=== PATIENT | male | born 1990 | race Caucasian/White ===

== ENCOUNTER 2018-06-27 10:31 | Emergency (ER) | payer OTHER, SELFPAY ==
[2018-06-27] MEDS ORDERED: METHYLPREDNISOLONE 125 MG INJ ONE (11:00)
[2018-06-27] MEDS ORDERED: IPRATROPIUM BROM 0.5MG/2.5ML ONE (11:00)
[2018-06-27] MEDS ORDERED: ALBUTEROL 2.5 MG/3 ML NEB SOL ONE (11:00)
[2018-06-27 11:14] LABS: Absolute Lymphocytes (CBC) 1.1 K/uL (0.7-4.9); Absolute Monocytes 0.9 K/uL (0.1-1.3); Absolute Neutrophil 5.3 K/uL (1.8-8.0); Basophils % 0.5 % (0-1.3); Eosinophils % 0.1 % (0-4.4); Hematocrit 52.9 % (39.6-49.0); Lymphocytes % 15.2 % (15.3-44.8); MPV 8.6 fL (7.6-11.3); Monocytes % 12.5 % (3.3-12.3); RBC Red Blood Cell Count 5.74 M/uL (4.33-5.43)
[2018-06-27 11:16] LABS: Protime INR 1.23
[2018-06-27 11:29] LABS: ALT/SGPT 50 U/L (12-78); AST/SGOT 30 U/L (15-37); Albumin 4.1 g/dL (3.4-5.0); Alkaline Phosphatase 95 U/L (45-117); BUN Blood Urea Nitrogen 14 mg/dL (7-18); Bicarbonate 20 mmol/L (21-32); Bilirubin Direct 0.1 mg/dL (0-0.2); Bilirubin Total 0.4 mg/dL (0.2-1.0); Glucose Level 149 mg/dL (74-106); Magnesium 1.9 mg/dL (1.8-2.4); NT PRO-BNP 121 pg/mL (<125); Potassium 3.4 mmol/L (3.5-5.1); Protein, Total 8.6 g/dL (6.4-8.2); Sodium Level 136 mmol/L (136-145); Troponin (Emerg Dept Use Only) < 0.02 ng/mL (0.0-0.045)
--- NOTE | 2018-06-27 11:54 | RAD REPORT ---
EXAM DESCRIPTION: Jd Single View06/27/2018 11:15 am CLINICAL HISTORY: sob COMPARISON: none FINDINGS: The lungs appear clear of acute infiltrate. The heart is normal size IMPRESSION: No acute abnormalities displayed
[2018-06-27] MEDS ORDERED: NA CHLORIDE 0.9% 1,000 ML ONE ×2 (11:58→13:09)
[2018-06-27 12:00] LABS: Urine Blood 1+ (NEG); Urine Glucose NEGATIVE (NEG); Urine Protein 2+ (NEG); Urine pH 5.5 (5.0-7.0)
[2018-06-27] MEDS ORDERED: LEVALBUTEROL 1.25 MG/3 ML NEB ONE (13:14)
--- NOTE | 2018-06-27 14:40 | ER ---
Nurse's Notes [facility] Name: Felix Mendoza Age: 27 yrs Sex: Male : 1990 Arrival Date: 06/27/2018 Time: 10:33 Bed 14 Private MD: Diagnosis: Influenza due to identified novel influenza A virus;Asthma Presentation: 06/27 10:33 Presenting complaint: Patient states: SOB today. Pt reports taking his mom's Albuterol aa5 neb POTLINE MONITOR without relief. Pt also reports cough, fever, nausea, vomiting, and diarrhea that began 3 days ago. 10:33 Transition of care: patient was not received from another setting of care. Onset of aa5 symptoms was June 27, 2018. Care prior to arrival: None. 10:33 Acuity: PABLO 2 aa5 10:33 Method Of Arrival: Ambulatory aa5 10:45 Risk Assessment: Do you want to hurt yourself or someone else? Patient reports no bp desire to harm self or others. Initial Sepsis Screen: Does the patient meet any 2 criteria? HR > 90 bpm. No. Patient's initial sepsis screen is negative. Does the patient have a suspected source of infection? Yes: Productive cough/pneumonia. Triage Assessment: 10:35 Respiratory: Onset: The symptoms/episode began/occurred 3 DAYS, the patient has mild bp shortness of breath. Historical: - Allergies: 10:33 No Known Allergies; aa5 - PMHx: 10:33 None; aa5 - PSHx: 10:33 None; aa5 - Immunization history:: Adult Immunizations up to date. - Ebola Screening: : No symptoms or risks identified at this time. - Social history:: Smoking status: Patient uses tobacco products, unknown amount. Screenin:00 Abuse screen: Denies threats or abuse. Denies injuries from another. Nutritional bp screening: No deficits noted. Tuberculosis screening: No symptoms or risk factors identified. Fall Risk None identified. Assessment: 10:35 General: Appears in no apparent distress. uncomfortable, ill, Behavior is calm, bp cooperative, appropriate for age. Pain: Denies pain. Neuro: Level of Consciousness is awake, alert, obeys commands, Oriented to person, place, time, situation, Appropriate for age. Cardiovascular: Rhythm is sinus tachycardia. Respiratory: Airway is patent Respiratory effort is even, labored, Respiratory pattern is regular, tachypnea Breath sounds with wheezes bilaterally. GI: Reports nausea, vomiting. : No signs and/or symptoms were reported regarding the genitourinary system. EENT: No deficits noted. Derm: No deficits noted. Musculoskeletal: Circulation, motion, and sensation intact. Range of motion: intact in all extremities. 12:00 Reassessment: MARKED EXERTIONAL DYSPNEA NOTED. IVF INFUSING. bp 14:00 Reassessment: ALL CURRENT ORDERS COMPLETED, DISPO PENDING. [id number] NOTED ON ROOM AIR. bp 15:44 Reassessment: PT D/C HOME AMBULATORY WITH FAMILY, DX WITH INFLUENZA A. bp Vital Signs: 10:34 BP 129 / 84; Pulse 150; Resp 30 S; Temp 97.8(TE); Pulse Ox 92% on R/A; aa5 11:00 BP 145 / 100; Pulse 133; Resp 28; Pulse Ox 100% ; bp 12:30 BP 140 / 78; Pulse 120; Resp 24; Pulse Ox 93% on R/A; bp 14:00 BP 115 / 63; Pulse 115; Resp 24; Pulse Ox 91% ; bp ED Course: 10:33 Patient arrived in ED. mr 10:33 Arm band placed on Patient placed in an exam room, on a stretcher. aa5 10:38 Jay Egan NP is PHCP. pm1 10:38 Marjan Scott MD is Attending Physician. pm1 10:41 Triage completed. aa5 10:45 Benja Arredondo, KYLER is Primary Nurse. bp 10:45 Inserted saline lock: 20 gauge in right antecubital area, using aseptic technique. bp Blood collected. 10:55 EKG done, by ED staff, reviewed by Jay Egan NP. jb1 11:00 Patient has correct armband on for positive identification. Bed in low position. Call bp light in reach. Side rails up X2. 11:14 X-ray completed. Portable x-ray completed in exam room. Patient tolerated procedure kp1 well. 11:16 XRAY Chest (1 view) In Process Unspecified. EDMS 12:01 Urine collected: clean catch specimen, cloudy, mark colored. jb1 15:42 No provider procedures requiring assistance completed. IV discontinued, intact, bp bleeding controlled, No redness/swelling at site. Pressure dressing applied. Administered Medications: 11:00 Drug: Albuterol - atroVENT (3:1) (2.5 mg - 0.5 mg) 3 ml Route: Nebulizer; bp 13:09 Follow up: Response: No adverse reaction bp 11:00 Drug: SOLU-Medrol 125 mg Route: IVP; Site: right antecubital; bp 12:00 Follow up: Response: No adverse reaction bp 11:45 Drug: NS 0.9% 1000 ml Route: IV; Rate: 1000 ml; Site: right antecubital; bp 13:00 Follow up: IV Status: Completed infusion; IV Intake: 1000ml bp 13:00 Drug: NS 0.9% 1000 ml Route: IV; Rate: 1000 ml; Site: right antecubital; bp 14:00 Follow up: IV Status: Completed infusion; IV Intake: 1000ml bp 13:05 Drug: Xopenex 1.25 mg Route: Inhalation; bp 14:50 Drug: Rocephin 1 grams Route: IV; Rate: calculated rate; Site: right antecubital; bp 15:41 Follow up: IV Status: Completed infusion; IV Intake: 100ml bp Intake: 13:00 IV: 1000ml; Total: 1000ml. bp 14:00 IV: 1000ml; Total: 2000ml. bp 15:41 IV: 100ml; Total: 2100ml. bp Outcome: 14:39 Discharge ordered by MD. pm1 15:43 Discharged to home ambulatory, with family. bp 15:43 Condition: stable 15:43 Discharge instructions given to patient, Instructed on discharge instructions, follow up and referral plans. medication usage, Demonstrated understanding of instructions, follow-up care, medications, Prescriptions given X 4. 15:45 Patient left the ED. bp Signatures: Dispatcher [employer] EDMS [place] jb1 Jason Fabiana IrizarryCorine, RN RN aa5 Jay Egan, ELÍAS DRY PAN OPERATOR pm1 Natalia Blue kp1 Benja Arredondo RN RN bp
--- NOTE | 2018-06-27 14:40 | EDPHYS ---
Physician Documentation [facility] Name: Felix Mendoza Age: 27 yrs Sex: Male : 1990 Arrival Date: 06/27/2018 Time: 10:33 Bed 14 Private MD: ED Physician Marjan Scott HPI: 06/27 11:30 This 27 yrs old Male presents to ER via Ambulatory with complaints of pm1 Breathing Difficulty, Vomiting/Diarrhea. 11:30 The patient has shortness of breath at rest. Onset: The symptoms/episode began/occurred pm1 3 day(s) ago. Duration: The symptoms are continuous. The patient's shortness of breath is aggravated by nothing, is alleviated by nothing. Associated signs and symptoms: Pertinent positives: non-productive cough, fever, vomiting, Diarrhea, Pertinent negatives: chest pain, diaphoresis, dizziness. Severity of symptoms: in the emergency department the symptoms are worse. The patient has not experienced similar symptoms in the past. The patient has not recently seen a physician. Historical: - Allergies: 10:33 No Known Allergies; aa5 - PMHx: 10:33 None; aa5 - PSHx: 10:33 None; aa5 - Immunization history:: Adult Immunizations up to date. - Ebola Screening: : No symptoms or risks identified at this time. - Social history:: Smoking status: Patient uses tobacco products, unknown amount. ROS: 11:30 Eyes: Negative for injury, pain, redness, and discharge, ENT: Negative for injury, pm1 pain, and discharge, Neck: Negative for injury, pain, and swelling, Cardiovascular: Negative for chest pain, palpitations, and edema. 11:30 Abdomen/GI: Negative for abdominal pain, nausea, vomiting, diarrhea, and constipation, Back: Negative for injury and pain, : Negative for injury, bleeding, discharge, and swelling, MS/Extremity: Negative for injury and deformity, Skin: Negative for injury, rash, and discoloration, Neuro: Negative for headache, weakness, numbness, tingling, and seizure. 11:30 Constitutional: Positive for body aches, chills, fever, Negative for poor PO intake. 11:30 Respiratory: Positive for cough, shortness of breath, wheezing. Exam: 11:30 Constitutional: This is a well developed, well nourished patient who is awake, alert, pm1 and in no acute distress. Head/Face: Normocephalic, atraumatic. Eyes: Pupils equal round and reactive to light, extra-ocular motions intact. Lids and lashes normal. Conjunctiva and sclera are non-icteric and not injected. Cornea within normal limits. Periorbital areas with no swelling, redness, or edema. ENT: Nares patent. No nasal discharge, no septal abnormalities noted. Tympanic membranes are normal and external auditory canals are clear. Oropharynx with no redness, swelling, or masses, exudates, or evidence of obstruction, uvula midline. Mucous membranes moist. Neck: Trachea midline, no thyromegaly or masses palpated, and no cervical lymphadenopathy. Supple, full range of motion without nuchal rigidity, or vertebral point tenderness. No Meningismus. Chest/axilla: Normal chest wall appearance and motion. Nontender with no deformity. No lesions are appreciated. Cardiovascular: Regular rate and rhythm with a normal S1 and S2. No gallops, murmurs, or rubs. Normal PMI, no JVD. No pulse deficits. 11:30 Abdomen/GI: Soft, non-tender, with normal bowel sounds. No distension or tympany. No guarding or rebound. No evidence of tenderness throughout. Back: No spinal tenderness. No costovertebral tenderness. Full range of motion. Skin: Warm, dry with normal turgor. Normal color with no rashes, no lesions, and no evidence of cellulitis. MS/ Extremity: Pulses equal, no cyanosis. Neurovascular intact. Full, normal range of motion. 11:30 Respiratory: the patient does not display signs of respiratory distress, Respirations: normal, Breath sounds: wheezing: expiratory is heard in the left posterior upper lobe and left posterior lower lobe. 11:30 Neuro: Orientation: is normal, Motor: moves all fours. Vital Signs: 10:34 BP 129 / 84; Pulse 150; Resp 30 S; Temp 97.8(TE); Pulse Ox 92% on R/A; aa5 11:00 BP 145 / 100; Pulse 133; Resp 28; Pulse Ox 100% ; bp 12:30 BP 140 / 78; Pulse 120; Resp 24; Pulse Ox 93% on R/A; bp 14:00 BP 115 / 63; Pulse 115; Resp 24; Pulse Ox 91% ; bp MDM: 10:38 Patient medically screened. pm1 14:10 Data reviewed: vital signs. pm1 14:38 Counseling: I had a detailed discussion with the patient and/or guardian regarding: the pm1 historical points, exam findings, and any diagnostic results supporting the discharge/admit diagnosis, lab results, radiology results. 14:38 ED course: Offered patient admission to the hospital. Patient would like to go home. pm1 Discussed return precautions with the patient. Will discharge the patient home with antibiotics, breathing treatment and steroids.. 06/27 10:45 Order name: Basic Metabolic Panel; Complete Time: 11:34 pm06/27 10:45 Order name: CBC with Diff; Complete Time: 11:34 pm06/27 10:45 Order name: LFT's; Complete Time: 11:34 pm06/27 10:45 Order name: Magnesium; Complete Time: 11:34 pm06/27 10:45 Order name: NT PRO-BNP; Complete Time: 11:34 pm1 06/27 10:45 Order name: PT-INR; Complete Time: 11:34 pm06/27 10:45 Order name: Troponin (emerg Dept Use Only); Complete Time: 11:34 pm1 06/27 10:45 Order name: XRAY Chest (1 view); Complete Time: 11:55 pm06/27 10:45 Order name: Flu; Complete Time: 11:34 pm06/27 11:49 Order name: Urine Dipstick--Ancillary (enter results); Complete Time: 12:02 06/27 10:45 Order name: EKG; Complete Time: 10:46 pm06/27 10:45 Order name: Cardiac monitoring; Complete Time: 10:55 pm06/27 10:45 Order name: EKG - Nurse/Tech; Complete Time: 10:55 pm06/27 10:45 Order name: IV Saline Lock; Complete Time: 10:55 pm06/27 10:45 Order name: Labs collected and sent; Complete Time: 10:55 pm06/27 10:45 Order name: O2 Per Protocol; Complete Time: 10:55 pm06/27 10:45 Order name: O2 Sat Monitoring; Complete Time: 10:56 pm06/27 11:43 Order name: Urine Dipstick-Ancillary (obtain specimen); Complete Time: 12:01 pm1 Administered Medications: 11:00 Drug: Albuterol - atroVENT (3:1) (2.5 mg - 0.5 mg) 3 ml Route: Nebulizer; bp 13:09 Follow up: Response: No adverse reaction bp 11:00 Drug: SOLU-Medrol 125 mg Route: IVP; Site: right antecubital; bp 12:00 Follow up: Response: No adverse reaction bp 11:45 Drug: NS 0.9% 1000 ml Route: IV; Rate: 1000 ml; Site: right antecubital; bp 13:00 Follow up: IV Status: Completed infusion; IV Intake: 1000ml bp 13:00 Drug: NS 0.9% 1000 ml Route: IV; Rate: 1000 ml; Site: right antecubital; bp 14:00 Follow up: IV Status: Completed infusion; IV Intake: 1000ml bp 13:05 Drug: Xopenex 1.25 mg Route: Inhalation; bp 14:50 Drug: Rocephin 1 grams Route: IV; Rate: calculated rate; Site: right antecubital; bp 15:41 Follow up: IV Status: Completed infusion; IV Intake: 100ml bp Disposition: 15:48 Co-signature as Attending Physician, Marjan Scott MD. ma2 Disposition: 06/27/18 14:39 Discharged to Home. Impression: Influenza due to identified novel influenza A virus, Asthma. - Condition is Stable. - Discharge Instructions: Asthma, Adult, Influenza, Adult, Asthma Attack Prevention, Adult. - Prescriptions for Prednisone 20 mg Oral Tablet - take 3 tablet by ORAL route once daily for 5 days; 15 tablet. Albuterol Sulfate 2.5 mg /3 mL (0.083 %) Inhalation Solution for Nebulization - inhale 1 unit by NEBULIZATION route every 8 hours As needed; 1 box. Zithromax Z- David 250 mg Oral Tablet - take 1 tablet by ORAL route as directed for 5 days Day 1 - take two (2) tablets one time. Day 2, 3, 4 , 5 take one (1) tablet once daily.; 6 tablet. Tamiflu 75 mg Oral Capsule - take 1 tablet by ORAL route every 12 hours for 5 days; 10 tablet. - Medication Reconciliation Form, Thank You Letter, Antibiotic Education, Prescription Opioid Use form. - Follow up: Emergency Department; When: As needed; Reason: Worsening of condition. Follow up: Private Physician; When: 2 - 3 days; Reason: Recheck today's complaints, Continuance of care, Re-evaluation by your physician. - Problem is new. - Symptoms have improved. Signatures: Dispatcher [employer] EDCorine Barron, RN RN aa5 Jay Egan, SALES PROCESS MANAGER SALES PROCESS MANAGER pm1 Benja Arredondo RN RN bp Marjan Scott MD MD ma2 Corrections: (The following items were deleted from the chart) 14:40 14:39 06/27/2018 14:39 Discharged to Home. Impression: Influenza due to identified pm1 novel influenza A virus. Condition is Stable. Forms are Medication Reconciliation Form, Thank You Letter, Antibiotic Education, Prescription Opioid Use. Follow up: Emergency Department; When: As needed; Reason: Worsening of condition. Follow up: Private Physician; When: 2 - 3 days; Reason: Recheck today's complaints, Continuance of care, Re-evaluation by your physician. Problem is new. Symptoms have improved. pm1 15:45 14:40 06/27/2018 14:39 Discharged to Home. Impression: Influenza due to identified bp novel influenza A virus; Asthma. Condition is Stable. Forms are Medication Reconciliation Form, Thank You Letter, Antibiotic Education, Prescription Opioid Use. Follow up: Emergency Department; When: As needed; Reason: Worsening of condition. Follow up: Private Physician; When: 2 - 3 days; Reason: Recheck today's complaints, Continuance of care, Re-evaluation by your physician. Problem is new. Symptoms have improved. pm1
[2018-06-27] MEDS ORDERED: NA CHLORIDE 0.9% 100 ML IV ONE (15:03)
[2018-06-27] MEDS ORDERED: CEFTRIAXONE 1000 MG/VIAL ONE (15:03)
--- NOTE | 2018-06-29 09:17 | EKG ---
Test Date: 2018-06-27 Test Time: 10:42:02 Lining Mechanic: JENNIFER MEASUREMENT RESULTS: Intervals: Rate: 141 DE: 140 QRSD: 88 QT: 278 QTc: 425 [place]: P: 76 DE: 140 QRS: 70 T: 80 INTERPRETIVE STATEMENTS: Sinus tachycardia Right atrial enlargement Borderline ECG No previous ECG available for comparison Electronically Signed On 06-29-18 09:17:03 BUTTON SEWING MACHINE OPERATOR by Ralf Watts
== END 2018-06-27 15:45 | disposition home or self-care (01) ==
LOC: ER 10:31
DX: J10.1 Influenza due to other identified influenza virus with other respiratory manifestations (principal); J45.909 Unspecified asthma, uncomplicated; Z72.0 Tobacco use
CPT/HCPCS: 36415; 71045; 80048; 80076; 81003; 83735; 83880; 84484; 85025; 85610; 87804; 93005; 94640; 96361; 96365; 96375; 99285; J2930; J7030

== ENCOUNTER 2020-11-26 11:17 | Emergency (ER) | payer SELFPAY ==
--- NOTE | 2020-11-26 13:31 | ER ---
Nurse's Notes [facility] Name: Felix Mendoza Age: 30 yrs Sex: Male : 1990 Arrival Date: 11/26/2020 Time: 11:21 Bed 18 Private MD: Diagnosis: Coronavirus infection, unspecified Presentation: 11/26 11:40 Chief complaint: Patient states: Body aches, RIOS, loss of taste for 3 days. Slight ll1 fever. Coronavirus screen: Client denies travel out of the [place] in the last 14 days. Client presents with at least one sign or symptom that may indicate coronavirus-19. Standard/surgical mask placed on the client. Ebola Screen: Patient denies travel to an Ebola-affected area in the 21 days before illness onset. Initial Sepsis Screen: Does the patient meet any 2 criteria? No. Patient's initial sepsis screen is negative. Does the patient have a suspected source of infection? Yes: Productive cough/pneumonia. Risk Assessment: Do you want to hurt yourself or someone else? Patient reports no desire to harm self or others. Onset of symptoms was November 24, 2020. 11:40 Method Of Arrival: Ambulatory ll1 11:40 Acuity: PABLO 4 ll1 Historical: - Allergies: 11:42 No Known Allergies; ll1 - PMHx: 11:42 hernia; Asthma; ll1 - PSHx: 11:42 None; ll1 - Immunization history:: Flu vaccine is not up to date. - Social history:: Smoking status: Reported history of juuling and/or vaping. Vital Signs: 11:40 Pulse 74; Resp 17; Temp 97.8; Pulse Ox 100% ; Weight 81.65 kg; Height 5 ft. 10 in. ll1 (177.80 cm); Pain 4/10; 11:47 BP 132 / 100; ll1 11:40 Body Mass Index 25.83 (81.65 kg, 177.80 cm) ll1 ED Course: 11:21 Patient arrived in ED. ds1 11:25 Kelly Stanley [facility]C [facility] kb 11:25 José Luis Linn MD is Attending Physician. kb 11:37 Arm band placed on. ll1 11:42 Triage completed. ll1 11:47 Flu Sent. ll1 13:16 Patient placed in an exam room, on a stretcher. 1 13:18 Benja Arredondo, RN is Primary Nurse. bp Administered Medications: No medications were administered Outcome: 13:31 Discharge ordered by . kb 13:37 Patient left the ED. kb Signatures: Kelly Stanley, TAPE LIBRARIAN-C TAPE LIBRARIAN-CkAura Fajardo ds1 Benja Arredondo, RN RN Alireza Guo RN RN 1 Corrections: (The following items were deleted from the chart) 12:36 11:47 CORONAVIRUS+MR.LAB.STEPHANIEGama drawn and sent. 1 EDMS
--- NOTE | 2020-11-26 13:31 | EDPHYS ---
Physician Documentation [facility] Name: Felix Mendoza Age: 30 yrs Sex: Male : 1990 Arrival Date: 11/26/2020 Time: 11:21 Bed 18 Private MD: ED Physician José Luis Linn HPI: 11/26 13:36 This 30 yrs old Male presents to ER via Ambulatory with complaints of Body kb Aches, Headache. 13:36 The patient or guardian reports flu symptoms, myalgias. Onset: The symptoms/episode kb began/occurred 3 day(s) ago. Severity of symptoms: At their worst the symptoms were moderate, in the emergency department the symptoms are unchanged. Modifying factors: The symptoms are alleviated by nothing, the symptoms are aggravated by nothing. Associated signs and symptoms: The patient has no apparent associated signs or symptoms. The patient has not experienced similar symptoms in the past. The patient has not recently seen a physician. Patient reports body aches, headache, no taste or smell for 3 days. States he came in for Covid test because he works in the [employer].. Historical: - Allergies: 11:42 No Known Allergies; ll1 - PMHx: 11:42 hernia; Asthma; ll1 - PSHx: 11:42 None; ll1 - Immunization history:: Flu vaccine is not up to date. - Social history:: Smoking status: Reported history of juuling and/or vaping. ROS: 13:35 Respiratory: Negative for shortness of breath, cough, wheezing, and pleuritic chest kb pain. 13:35 Constitutional: Positive for body aches, fatigue, malaise, no taste or smell, Negative for chills, fever, poor PO intake, weight loss. 13:35 All other systems are negative. 13:37 Neuro: Positive for headache. kb Exam: 13:35 Constitutional: This is a well developed, well nourished patient who is awake, alert, kb and in no acute distress. Head/Face: Normocephalic, atraumatic. ENT: Moist Mucous membranes Respiratory: Respirations even and unlabored. No increased work of breathing, no retractions or nasal flaring. Skin: Warm, dry with normal turgor. Normal color. MS/ Extremity: Pulses equal, no cyanosis. Neurovascular intact. Full, normal range of motion. Neuro: Awake and alert, GCS 15, oriented to person, place, time, and situation. Moves all extremities. Normal gait. Psych: Awake, alert, with orientation to person, place and time. Behavior, mood, and affect are within normal limits. Vital Signs: 11:40 Pulse 74; Resp 17; Temp 97.8; Pulse Ox 100% ; Weight 81.65 kg; Height 5 ft. 10 in. ll1 (177.80 cm); Pain 4/10; 11:47 BP 132 / 100; ll1 11:40 Body Mass Index 25.83 (81.65 kg, 177.80 cm) ll1 MDM: 11:45 Patient medically screened. kb 13:34 Data reviewed: vital signs, nurses notes. Data interpreted: Pulse oximetry: on room air kb is 100 %. Interpretation: normal. Counseling: I had a detailed discussion with the patient and/or guardian regarding: the historical points, exam findings, and any diagnostic results supporting the discharge/admit diagnosis, lab results, the need for outpatient follow up, a family practitioner, to return to the emergency department if symptoms worsen or persist or if there are any questions or concerns that arise at home. 11/26 11:25 Order name: Flu; Complete Time: 13:34 kb 11/26 13:31 Order name: SARS-COV-2 RT PCR; Complete Time: 13:31 EDMS Administered Medications: No medications were administered Disposition: 16:04 Co-signature as Attending Physician, José Luis Linn MD. rn Disposition Summary: 11/26/20 13:31 Discharge Ordered Location: Home kb Condition: Stable kb Diagnosis - Coronavirus infection, unspecified kb Followup: kb - With: Emergency Department - When: As needed - Reason: Worsening of condition Followup: kb - With: Private Physician - When: 1 - 2 days - Reason: Recheck today's complaints, Continuance of care, Re-evaluation by your physician Discharge Instructions: - Discharge Summary Sheet kb - Viral Respiratory Infection, [id number] kb - COVID-19 kb Forms: - Medication Reconciliation Form kb - Thank You Letter kb - Antibiotic Education kb - Prescription Opioid Use kb Signatures: Dispatcher [employer] EDMS Kelly Stanley FNP-C FNP-José Luis Ceballos MD MD rn Lewis, Lynsay, RN RN ll1 Corrections: (The following items were deleted from the chart) 12:36 11:26 CORONAVIRUS+MRMOISES.BRZ ordered. EDMS EDMS
[2020-11-26 13:43] VITALS: TEMP 97.8; O2SAT 100
[2020-11-26 13:44] VITALS: BP 132/100
== END 2020-11-26 13:37 | disposition home or self-care (01) ==
LOC: ER 11:17
DX: U07.1 COVID-19 (principal); J45.909 Unspecified asthma, uncomplicated; F17.290 Nicotine dependence, other tobacco product, uncomplicated
CPT/HCPCS: 87804; 99282; U0003

== ENCOUNTER 2021-04-19 17:04 | Emergency (ER) | payer SELFPAY ==
--- NOTE | 2021-04-19 20:06 | ER ---
Nurse's Notes [facility] Name: Felix Mendoza Age: 30 yrs Sex: Male : 1990 Arrival Date: 04/19/2021 Time: 17:10 Bed Waiting Private MD: Diagnosis: Assessment: 04/19 18:25 Reassessment: Called patient to triage. No answer. Unable to locate patient. ED Course: 17:10 Patient arrived in ED. ds1 19:29 Patient's name was called from ER ara. No response. lp1 Administered Medications: No medications were administered Outcome: 20:06 Patient left the ED. lp1 Signatures: Aura Guevara ds1 Shanna Downing RN RN Alanna Mcdowell RN RN lp1
== END 2021-04-19 20:06 | disposition left against medical advice (07) ==
LOC: ER 17:04
DX: Z02.9 Encounter for administrative examinations, unspecified (principal)